=== PATIENT | female | born 1965 | race Caucasian/White ===

== ENCOUNTER 2018-09-06 06:43 | Emergency (ER) | payer SELFPAY ==
[2018-09-06 06:44] VITALS: BP 165/83; PULSE 104; RESP 19; TEMP 36.9; O2SAT 99; BMI 29.5
[2018-09-06 07:39] LABS: Bacteria 0 SEEN /hpf (None Seen); Mucous, Urine 0 SEEN /hpf (<or=2+); Squamous Epithelial Cells - UA 0 SEEN /hpf (5-10)
--- NOTE | 2018-09-06 07:39 | CT_ITS ---
STUDY: CT ABDOMEN AND PELVIS WITHOUT CONTRAST REASON FOR EXAM: Female, 52 years old. Anemia, blood in stool RADIATION DOSAGE (If Supplied By Facility): CTDIvol = ( 11.22 ) mGy, DLP = ( 588.80 ) mGycm TECHNIQUE: Transaxial images were obtained from the dome of the diaphragm to the symphysis pubis without oral contrast, and without intravenous contrast. Sagittal and coronal images were reconstructed. Individualized dose optimization techniques were used for this CT. COMPARISON: None. FINDINGS: The visualized lung bases are unremarkable. The visualized portions of the heart are within normal limits. Normal liver. There are surgical clips in the gallbladder fossa consistent with a prior cholecystectomy. Normal spleen. Normal pancreas. Normal bilateral adrenal glands. Normal left kidney. Right kidney shows hydronephrosis and hydroureter but no obstructing stone stricture or mass is noted. The right ureter is dilated along its entire course. Normal visualized stomach. Normal small intestine. Retained stool noted in the colon. There are surgical clips in the region of the appendix consistent with a prior appendectomy. Normal abdominal aorta. Normal inferior vena cava. Normal retroperitoneum. Normal urinary bladder. There is absence of the uterus consistent with a prior hysterectomy. Normal abdominal wall. There are diffuse degenerative changes of the visualized lumbar spine. CT/Abdomen/Pelvis without Cont IMPRESSION: Right-sided hydronephrosis and hydroureter of uncertain etiology. No obstructing stone stricture or mass lesion noted. Retained stool noted in the colon, no CT evidence of obstruction or acute inflammation, no demonstrated caliber change. Previous appendectomy and cholecystectomy Electronically Signed: Shahriar Downey MD at 8:19 EDT , Service support ,
[2018-09-06] MEDS: 0.9% Normal Saline 1,000 ML 1000 ML IV (07:46)
[2018-09-06 07:52] LABS: Color, Urine Yellow (Yellow); Glucose, Dipstick Normal (Normal); Ketone-Dipstick Negative (Negative); Leukocyte Esterase-Dipstick 500 /ul (Negative); Nitrite-Dipstick Negative (Negative); Occult Blood-Urine 250 /ul (Negative); Protein-Dipstick 30 mg/dl (Negative); Urine Bilirubin Dipstick Negative (Negative); Urine Clarity Sl. Cloudy (Clear); Urine Urobilinogen Normal (Normal)
[2018-09-06 07:53] LABS: Absolute Lymphocyte Count 1.61 X10^3/ul (0.83-4.51); Absolute Neutrophil Count 6.2 X10^3/uL (2.0-7.7); Basophil# 0.04 X10^3/uL; Basophil% 0.5 % (0-1); Eosinophil# 0.08 X10^3/uL; Eosinophils% 0.9 % (0-5); Hematocrit 42.2 % (37-47); Hemoglobin 14.4 g/dl (12.0-15.0); Lymphocyte # 1.61 X10^3/ul (4.0); Lymphocyte % 18.2 % (19-41); Mean Corp Hgb Conc 34.1 g/gl (32-36); Mean Corpuscular Hgb 30.8 pg (27.0-32.0); Mean Corpuscular Volume 90.2 fL (81-99); Monocyte# 0.94 X10^3/uL; Monocyte% 10.6 % (0-10); Neutrophil # 6.19 X10^3/uL (2.7-7.7); Neutrophil % 69.7 % (47-70); Platelet Count 182 K/mm3 (150-450); RBC Distribution Width CV 13.8 % (11.6-14.6); RBC Distribution Width SD 45.1 fl (35.1-43.9); Red Blood Count 4.68 M/mm3 (4.2-5.4); White Blood Count 8.9 K/mm3 (4.4-11.0)
[2018-09-06 07:56] LABS: Red Blood Cells-Urine > 100 SEEN /hpf (0-5); White Blood Cells 10-25 SEEN /hpf (0-5)
[2018-09-06 07:57] LABS: POSITIVE COUNT NO; POSITIVE DIFFERENTIAL NO; POSITIVE MORPHOLOGY NO
[2018-09-06 08:03] LABS: Anion Gap 3 (5-15); BUN 13 mg/dL (7-18); Calcium,Total 8.7 mg/dL (8.5-10.1); Chloride 104 mmol/L (98-107); Creatinine, Serum 0.82 mg/dL (0.55-1.02); EST Glomerular Filtration Rate 78 mL/min (>60); Est Glom Filt Rate - Afr Amer 95 mL/min (>60); Estimated Creatinine Clearance 64.19 ml/min; Glucose 104 mg/dL (74-106); Potassium 3.3 mmol/L (3.5-5.1); Sodium Level 136 mmol/L (136-145)
--- NOTE | 2018-09-06 08:29 | ED.VIS.GEN ---
History of Present Illness Chief Complaint: Complaint Informant: Patient Onset: Yesterday Current Severity: Moderate Narrative: Patient indicates for a few days she has had lower back pain, frequent urination, and then yesterday she noticed blood when she urinated and felt that possibly she was passing blood through her rectum when she had bowel movements as she noticed when she would go to the restroom she would notice quite a blood in the commode, she does not note any blood in the stool or on the stool. She has a prior history for hysterectomy, she is not prone to any type of GI bleeding UTI no history of kidney stone she has had no fever no cough no trauma she points to her low lumbar back area discomfort, she voided spontaneously blood-tinged urine she is resting comfortably but no distress Past Medical History - Allergies and Home Meds Allergies/Adverse Reactions: Allergies No Known Allergies Allergy (Verified 09/06/18 06:46) Primary Care Physician: Henrry Kolb [Primary Care Provider] - Smoking Status: Never smoker Review of Systems General: Denies: Chills, Fever, Sweats Eyes: Denies: Visual changes - bilaterally, Diplopia ENT: Denies: Rhinorrhea, Sore throat Cardiovascular: Denies: Chest pain, Palpitations Respiratory: Denies: Dyspnea, Cough, Dyspnea on exertion Gastrointestinal: Denies: Abdominal pain, Nausea, Vomiting, Diarrhea, Melena, Hematochezia Genitourinary: Reports: Dysuria, Hematuria, Frequency Musculoskeletal: Denies: Back pain, Extremity Pain Skin: Denies: Rash, Wounds Neurological: Denies: Headache, Weakness, Numbness Physical Exam Vital Signs/Narrative: Vital Signs Temp Pulse Resp BP Pulse Ox 09/06/18 06:44 98.5 F 104 H 19 H 165/83 H 99 General: Well nourished, Well developed, No Acute Distress Head: Normocephalic, Atraumatic Eyes: Perrl, EOMI ENT: Moist mucous membranes, No rhinorrhea Neck: Supple, Nontender Cardiovascular: Regular rate, Regular rhythm, No murmurs Respiratory: No distress, CTA bilaterally, Chest nontender Abdomen: Soft, Nontender, Nondistended, Normal bowel sounds Rectal: Guaiac negative, Nontender : - - The patient's abdominal exam is soft and nontender she has a vague discomfort to her lower lumbar back, 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 her rectal exam showed brown stool, digital vaginal bimanual type exam showed no blood in the vagina no blood in the perineum she was unable to produce stool to show any signs of bleeding Back: Nontender, Normal Inspection Extremities: Nontender, No edema Skin: Normal color, No rash Neurological: Alert, Oriented x3, Cranial nerves II-XII grossly intact, Normal Strength, Normal Sensation Psychological: Normal affect, Normal Mood Diagnostic/Tx/Re-eval - Medical Decision Making Clinically she clearly has gross hematuria, she indicates the blood in the stool she saw was when she was on the commode in the toilet bowl water seen bloody Has no history of GI bleeding history of vaginal bleeding she status post hysterectomy Labs are generally unremarkable except for signs of UTI on UA urine culture sent by the Rocephin given, CT of the abdomen flank shows right-sided hydronephrosis but no signs of obvious cause see all those reports Long conversation with family and the patient she understands test results the likelihood this is all from gross hematuria UTI possible Nic, she wants to go home she was given Rocephin she will be started on Augmentin and to follow-up with her doctors in the next few days return for change in symptoms, I will refer her to [facility] stable Final impression Urinary tract infection, gross hematuria ED Disposition - Plan for ED Patient: Referrals: Henrry Kolb [Primary Care Provider] -
--- NOTE | 2018-09-06 08:33 | ED.DEP ---
ED Disposition - Plan for ED Patient: Instructions: ED UTI Cystitis Female Prescriptions: Amox/Clavulanate Tablet [Augmentin Tablet] 875 mg PO Q12H #20 tab Naproxen [Naprosyn] 500 mg PO BID PRN #20 tab Phenazopyridine HCl [Azo Urinary Pain Relief] 99.5 mg PO BID #7 tab Referrals: Henrry Kolb [Primary Care Provider] -
[2018-09-06] MEDS: Ceftriaxone 1 GM/50 ML BAG IV (08:49)
--- NOTE | 2018-09-06 09:04 | ED.VIS.GEN ---
History of Present Illness Chief Complaint: Complaint Informant: Patient Onset: Days - 3 days Context: Gradual Onset Timing: Continuous Quality: burning Location: bladder Current Severity: Moderate Maximum Severity: Moderate Worsened by: urination Relieved by: nothing Associated Symptoms: frequency, urgency Prior similar symptoms: Yes Recent Illness/Hospitalization: No Past Medical History - Allergies and Home Meds Allergies/Adverse Reactions: Allergies No Known Allergies Allergy (Verified 09/06/18 06:46) Primary Care Physician: Henrry Kolb [Primary Care Provider] - Smoking Status: Never smoker Review of Systems All systems negative except as indicated Genitourinary: Reports: Dysuria, Frequency Physical Exam Vital Signs/Narrative: Vital Signs Temp Pulse Resp BP Pulse Ox 09/06/18 06:44 98.5 F 104 H 19 H 165/83 H 99 General: Well nourished, Well developed, No Acute Distress Head: Normocephalic, Atraumatic Eyes: Perrl, EOMI ENT: Moist mucous membranes Neck: Supple, Nontender Cardiovascular: Regular rate, Regular rhythm Respiratory: No distress, CTA bilaterally, Chest nontender Abdomen: Soft, Nontender, Nondistended, Normal bowel sounds, No masses Back: Nontender Extremities: Nontender, No edema Skin: Normal color, No rash Neurological: Alert, Oriented x3 ED Disposition - Plan for ED Patient: Disposition: Home or Assisted Living Instructions: Bladder Infection, Female (Adult) Prescriptions: Amox/Clavulanate Tablet [Augmentin Tablet] 875 mg PO Q12H #20 tab Prescription Printed Phenazopyridine HCl [Azo Urinary Pain Relief] 99.5 mg PO BID #7 tab Prescription Printed Naproxen [Naprosyn] 500 mg PO BID PRN #20 tab Prescription Printed Referrals: Henrry Kolb [Primary Care Provider] -
[2018-09-06 09:35] VITALS: BP 114/68; PULSE 72; RESP 18
== END 2018-09-06 09:36 | disposition home or self-care (01) ==
PROVIDERS: Emergency Medicine; Emergency Provider Emergency Medicine; Family Provider Family Medicine; PCP Family Medicine
DX: N39.0 Urinary tract infection, site not specified (principal); R31.0 Gross hematuria
CPT/HCPCS: 74176; 80048; 81001; 82274; 85025; 87086; 87088; 87186; 96361; 96365; 99285; J7030; A4216; J2405

== ENCOUNTER → 2019-07-15 | Outpatient (CLI) | payer OTHER, SELFPAY | END | disposition home or self-care (01) | LOC: LABSPEC 16:44 | PROVIDERS: PCP Family Medicine; Referring Provider Urology; Visit Provider Urology | DX: N39.0 Urinary tract infection, site not specified (principal) | CPT/HCPCS: 87086; 87088; 87493 ==